=== PATIENT | male | born 1950 | race Caucasian/White ===

== ENCOUNTER 2016-12-12 04:00 | Inpatient (IN) | payer MEDICARE, BC, OTHER ==
[2016-12-12] VITALS (7 sets, daily range): BP systolic 103–107; BP diastolic 55–71; PULSE 114–139; RESP 18–27; O2SAT 96–100
[~2016-12-12] VITALS: Ht 172.7 cm; Wt 80.0 kg
[2016-12-12] MEDS ORDERED: CALCIUM GLUCONATE 10% 1 GM/10 ML VIAL ONE (04:35)
[2016-12-12] MEDS ORDERED: SODIUM CHLORIDE 0.9% FLUSH 10 ML FLUSH IVF PRN ×2 (04:45→05:45)
[2016-12-12 04:48] LABS: I-STAT POTASSIUM 3.1 MMOL/L (3.5-4.9)
--- NOTE | 2016-12-12 04:57 | PD ---
HPI Chief Complaint: Cardiac Complaint Time Seen by Provider: 04:36 Travel History International Travel<30 days: No Contact w/Intl Traveler<30days: No Traveled to known affect area: No History of Present Illness HPI Patient is a 66-year-old male with history of coronary artery disease ventricular tachycardia with AICD in place. Patient called 911 today because he was having palpitations and his pacemaker went off several times. According to EMS the patient was in ventricular tachycardia when they arrived, he was shocked once in their presence by his AICD. He was loaded with lidocaine in transport, on arrival the patient states he is feeling palpitations but otherwise feels well, no chest pain or shortness of breath. PFSH Past Medical History Hx Anticoagulant Therapy: Yes Cardiovascular Problems: Yes (CABG, AICD) Social History Alcohol Use: Yes Tobacco Use: Yes Allergies-Medications (Allergen,Severity, Reaction): Coded Allergies: No Known Allergies (Unverified , 12/12/16) Reported Meds & Prescriptions Reported Meds & Active Scripts Active Reported Isosorbide Dinitrate 20 Mg Tab 20 Mg PO TID Hydralazine HCl 25 Mg Tablet 25 Mg PO BID Metoprolol Succinate ER 24 HR (Metoprolol Succinate) 200 Mg Tab 200 Mg PO DAILY Rosuvastatin (Rosuvastatin Calcium) 20 Mg Tab 20 Mg PO DAILY Rapaflo (Silodosin) 8 Mg Cap 8 Mg PO DAILY Amiodarone (Amiodarone HCl) 200 Mg Tab 200 Mg PO DAILY Xarelto (Rivaroxaban) 20 Mg Tab 20 Mg PO DAILY Spironolactone 25 Mg Tab 12.5 Mg PO DAILY Levothyroxine (Levothyroxine Sodium) 125 Mcg Tab 125 Mcg PO DAILY Lasix (Furosemide) 20 Mg Tab 20 Mg PO DAILY Review of Systems Except as stated in HPI: all other systems reviewed are Neg Physical Exam Narrative GENERAL: Well-developed well-nourished, no obvious distress. SKIN: Focused skin assessment warm/dry. HEAD: Atraumatic. Normocephalic. EYES: Pupils equal and round. No scleral icterus. No injection or drainage. ENT: No nasal bleeding or discharge. Mucous membranes pink and moist. NECK: Trachea midline. No JVD. CARDIOVASCULAR: Regular rate and rhythm. No murmur appreciated. 2+ but equal pulses in all 4 extremities. RESPIRATORY: No accessory muscle use. Clear to auscultation. Breath sounds equal bilaterally. GASTROINTESTINAL: Abdomen soft, non-tender, nondistended. Hepatic and splenic margins not palpable. MUSCULOSKELETAL: No obvious deformities. No clubbing. No cyanosis. No edema. NEUROLOGICAL: Awake and alert. No obvious cranial nerve deficits. Motor grossly within normal limits. Normal speech. PSYCHIATRIC: Appropriate mood and affect; insight and judgment normal. Data Data Last Documented VS Vital Signs Date Time Temp Pulse Resp B/P (MAP) Pulse Ox O2 Delivery O2 Flow Rate FiO2 12/12/16 05:03 92 Nasal Cannula 2.00 12/12/16 04:15 106 12/12/16 04:15 18 107/70 (82) Orders Orders Calcium Gluconate Inj (Calcium Gluconate (12/12/16 04:35) I-Stat Profile (12/12/16 04:36) I-Stat Creatinine (12/12/16 04:36) Electrocardiogram (12/12/16 04:42) Ckmb (Isoenzyme) Profile (12/12/16 04:42) Complete Blood Count With Diff (12/12/16 04:42) Comprehensive Metabolic Panel (12/12/16 04:42) Digoxin (12/12/16 04:42) Magnesium (Mg) (12/12/16 04:42) Prothrombin Time / Inr (Pt) (12/12/16 04:42) Act Partial Throm Time (Ptt) (12/12/16 04:42) Troponin I (12/12/16 04:42) Chest, Single Ap (12/12/16 04:42) Ecg Monitoring (12/12/16 04:42) Iv Access Insert/Monitor (12/12/16 04:42) Oximetry (12/12/16 04:42) Oxygen Administration (12/12/16 04:42) Sodium Chloride 0.9% Flush (Ns Flush) (12/12/16 04:45) Etomidate Inj (Amidate Inj) (12/12/16 05:19) Blood Pressure (12/12/16 05:36) Vital Signs (12/12/16 05:36) Dextrose 5% In Wate... W/Amiodarone Inj (12/12/16 05:51) Sodium Chloride 0.9% Flush (Ns Flush) (12/12/16 05:45) Lidocaine/D5w 2000 Mg/500 Ml (Lidocaine/ (12/12/16 05:36) Furosemide Inj (Lasix Inj) (12/12/16 05:45) Potassium Chlor 20 Meq Premix (Kcl 20 Me (12/12/16 05:45) Admit Order (Ed Use Only) (12/12/16 ) Consult Cardiology (12/12/16 ) Labs Laboratory Tests Test 12/12/16 04:30 12/12/16 04:40 Bedside Hemoglobin 12.6 G/DL Bedside Hematocrit 37.0 % Bedside Sodium 136 MMOL/L Blood Urea Nitrogen 19 MG/DL Creatinine 1.64 MG/DL Random Glucose 126 MG/DL Total Protein 6.3 GM/DL Albumin 3.0 GM/DL Calcium Level 7.8 MG/DL Magnesium Level 1.7 MG/DL Alkaline Phosphatase 60 U/L Aspartate Amino Transf (AST/SGOT) 64 U/L Alanine Aminotransferase (ALT/SGPT) 64 U/L Total Bilirubin 0.4 MG/DL Sodium Level 135 MEQ/L Potassium Level 3.0 MEQ/L Chloride Level 101 MEQ/L Carbon Dioxide Level 23.8 MEQ/L Bedside Potassium 3.1 MMOL/L Bedside Chloride 97 MMOL/L Anion Gap 10 MEQ/L Bedside Blood Urea Nitrogen 19 MG/DL Bedside Creatinine 1.7 MG/DL Estimat Glomerular Filtration Rate 42 ML/MIN Bedside Glucose 129 MG/DL Total Creatine Kinase 91 U/L Troponin I 0.05 NG/ML Digoxin Level LESS THAN 0.1 NG/ML White Blood Count 6.6 TH/MM3 Red Blood Count 3.80 MIL/MM3 Hemoglobin 12.9 GM/DL Hematocrit 37.5 % Mean Corpuscular Volume 98.8 FL Mean Corpuscular Hemoglobin 33.9 PG Mean Corpuscular Hemoglobin Concent 34.4 % Red Cell Distribution Width 14.6 % Platelet Count 137 TH/MM3 Mean Platelet Volume 9.8 FL Neutrophils (%) (Auto) 57.1 % Lymphocytes (%) (Auto) 28.7 % Monocytes (%) (Auto) 10.9 % Eosinophils (%) (Auto) 2.5 % Basophils (%) (Auto) 0.8 % Neutrophils # (Auto) 3.8 TH/MM3 Lymphocytes # (Auto) 1.9 TH/MM3 Monocytes # (Auto) 0.7 TH/MM3 Eosinophils # (Auto) 0.2 TH/MM3 Basophils # (Auto) 0.1 TH/MM3 CBC Comment DIFF FINAL Differential Comment Prothrombin Time 11.4 SEC Prothromb Time International Ratio 1.0 RATIO Activated Partial Thromboplast Time 29.0 SEC MDM Medical Decision Making Medical Screen Exam Complete: Yes Emergency Medical Condition: Yes Differential Diagnosis AICD fire, ventricular tachycardia, ACS, AMI. Narrative Course Patient was roomed in emergency department, he received lidocaine bolus prior to arrival. On arrival the patient is in atrial paced rhythm. Vital signs stable. Shortly after arrival patient started having sustained ventricular tachycardia at a rate of 140-160. His AICD did not fire. The patient was loaded on amiodarone 300 mg IV over 5 minutes. This had no effect. He was also given magnesium 2 g IV, calcium gluconate 2 g IV. Patient's i-STAT chemistry did not reveal any hyperkalemia, no other metabolic deficiencies noted. After the above interventions patient's heart rate slowed to 130s to 140s still with a wide rhythm. The patient was discussed with Dr. Gibbs civil laboratory technician integration technician who recommended emergent interrogation. [facility] AICD was interrogated and did show ventricular tachycardia. The threshold rate for a defibrillation was 150. Attacks asked for my permission to cardiovert this patient and I gave it and he received 2 doses of 40 J from his pacemaker on command. The first dose converted him for a total of 3 beats to sinus rhythm the second dose had no effect. ICU was in consult of Dr. Welch and Dr. Mcdaniel have both lended their expertise. The patient was given procainamide, additional magnesium 2 g, additional amiodarone 150 mg, despite this the patient started becoming somewhat short of breath, he did have some rales but her repeat chest x-ray showed no obvious infiltrate or effusion. He was placed on BiPAP because his saturation had felt to 90% on [address] Mcdaniel is starting a central line and during that procedure the patient's blood pressure started to decrease to 90 systolic, he was started on Wander-Synephrine as well. Lidocaine and amiodarone drips were given as well as well as metoprolol 5 mg IV. Despite all the interventions the patient continues to be in sustained ventricular tachycardia of 1:30 to 140. I discussed again with Dr. Gibbs the possibility of getting an electrophysiology study, unfortunately we have no staff climate scientist integration technician today. I had discussed the patient with [facility] coordinator who referred me to their civil laboratory technician Dr. Nicole who did not return two pages. I discussed the patient with Dr. Humphries who is on-call for the ER at [facility] who did not accept without talking with cardiology first. Dr. Nicole called me back and accepted the patient ER to ER. Patient was then discussed with the transfer center with Dr. Sewell ER physician who accepted ER to ER. The patient is protecting his airway, Dr. Mcdaniel and I had recommended that he be intubated for the flight and he refused. Total interventions prior to transfer: Central line right fem. BIPAP 5/10/60% Lidocaine bolus from EMS Amioodarone 300 Amiodarone 150 Magnesium 2gm x2 doses Calcium Gluconate 2gm Metoprolol 5mg Potassium Cl 20meq Neosynephrine Drip Amiodarone Drip Lidocaine Drip Critical Care Narrative Aggregate critical care time was 91 minutes. Time to perform other separately billable procedures was not included in the critical care time. My time did not include minutes spent treating any other patients simultaneously or on activities that did not directly contribute to the patient's treatment. The services I provided to this patient were to treat and/or prevent clinically significant deterioration that could result in: , disability, organ failure. I provided critical care services requiring my management, as noted below: Chart data review, documentation time, medication orders and management, vital sign assessments/reviewing monitor data, ordering and reviewing lab tests, ordering and interpreting/reviewing x-rays and diagnostic studies, care of the patient and discussion of the patient with the admitting physicians. Diagnosis Primary Impression: Ventricular tachycardia Disposition: 70 TRANSFER TO OTHER FACILITY ( Drs. Nicole/Donato accept at [facility]) Condition: Stable (patient is stabilized the best of my ability for transportation. The benefits of getting to an staff climate scientist outweigh the risks of transportation.) Howard Guerra MD Dec 12, 2016 04:57
[2016-12-12 05:04] LABS: AUTOMATED NEUTROPHIL # 3.8 TH/MM3 (1.8-7.7); BASOPHIL # 0.1 TH/MM3 (0-0.2); BASOPHIL % 0.8 % (0.0-2.0); EOSINOPHIL # 0.2 TH/MM3 (0-0.4); EOSINOPHIL % 2.5 % (0.0-4.0); HEMATOCRIT 37.5 % (39.0-51.0); HEMO FLAGS DIFF FINAL; LYMPH % 28.7 % (9.0-44.0); LYMPHOCYTE # 1.9 TH/MM3 (1.0-4.8); MEAN CELL VOLUME 98.8 FL (80.0-100.0); MEAN CORPUSCULAR HEMOGLOBIN 33.9 PG (27.0-34.0); MEAN CORPUSCULAR HGB CONC 34.4 % (32.0-36.0); MONO % 10.9 % (0.0-8.0); NEUT % 57.1 % (16.0-70.0); PLATELET COUNT 137 TH/MM3 (150-450); RED CELL DISTRIBUTION WIDTH 14.6 % (11.6-17.2); WHITE BLOOD COUNT 6.6 TH/MM3 (4.0-11.0)
[2016-12-12 05:15] LABS: PROTHROMBIN TIME - PATIENT 11.4 SEC (9.8-11.6)
[2016-12-12 05:17] LABS: ALT (GPT) 64 U/L (12-78); ANION GAP 10 MEQ/L (5-15); AST (GOT) 64 U/L (15-37); BICARBONATE 23.8 MEQ/L (21.0-32.0); BLOOD UREA NITROGEN 19 MG/DL (7-18); CHLORIDE 101 MEQ/L (98-107); GLOMERULAR FILTRATION RATE 42 ML/MIN (>89); MAGNESIUM 1.7 MG/DL (1.5-2.5); SODIUM (NA) 135 MEQ/L (136-145)
[2016-12-12] MEDS ORDERED: ETOMIDATE 20 MG/10 ML VIAL ONE (05:19)
[2016-12-12 05:31] LABS: ALKALINE PHOSPHATASE 60 U/L (45-117); DIGOXIN LESS THAN 0.1 NG/ML (0.8-2.0); TOTAL BILIRUBIN ADULT 0.4 MG/DL (0.2-1.0)
[2016-12-12 05:33] LABS: CREATINE KINASE 91 U/L (39-308)
[2016-12-12] MEDS ORDERED: LIDOCAINE/D5W 2000 MG/500 ML 500 ML IV SCH (05:36)
[2016-12-12] MEDS ORDERED: FUROSEMIDE 40 MG/4 ML VIAL IV PUSH ONE (05:45)
[2016-12-12] MEDS ORDERED: POTASSIUM CHLOR 20 MEQ PREMIX 100 ML IV ONE (05:45)
[2016-12-12] MEDS ORDERED: AMIODARONE INJ 450 MG in DEXTROSE 5% IN WATE(EXCEL) INJ 241 ML IV SCH ×2 (05:51)
--- NOTE | 2016-12-12 05:53 | RADRPT ---
EXAM DATE/TIME: 12/12/2016 04:49 [facility] COMPARISON: No previous studies available for comparison. INDICATIONS : Defibrillator. Placement MEDICAL HISTORY : Carcinoma, lung. SURGICAL HISTORY : CABG. Pacemaker. ENCOUNTER: Initial ACUITY: 1 day PAIN SCORE: 0/10 LOCATION: Bilateral chest FINDINGS: A single AP supine portable view of the chest was obtained and demonstrated the patient is status pos t median sternotomy. An artificial heart valve is noted in place. The heart size is mildly prominent with no focal confluent infiltrates or effusions. There is a left subclavian AV sequential transvenou s pacer in place with defibrillator leads. CONCLUSION: 1. Left subclavian transvenous pacer with defibrillator lead. 2. Mild cardiomegaly with no evidence of pulmonary edema. Eduardo Coleman MD on December 12, 2016 at 5:51 Board Certified Radiologist. This report was verified electronically.
[2016-12-12] MEDS ORDERED: DEXTROSE 5% IV SCH ×2 (05:59)
[2016-12-12] MEDS ORDERED: PROCAINAMIDE IV SCH ×2 (05:59)
[2016-12-12] MEDS ORDERED: WATE IV SCH ×2 (05:59)
[2016-12-12] MEDS ORDERED: PROCAINAMIDE 1000 MG/2 ML IV PUSH ONE (06:00)
[2016-12-12] MEDS ORDERED: METOPROLOL TARTRATE 5 MG/5 ML VIAL IV PUSH ONE ×2 (06:30)
[2016-12-12] MEDS ORDERED: MAGNESIUM SULFATE 1 GM PREMIX 100 ML IV ONE (06:30)
--- NOTE | 2016-12-12 06:56 | RADRPT ---
EXAM DATE/TIME: 12/12/2016 07:12 [facility] COMPARISON: CHEST SINGLE AP, December 12, 2016, 4:49. INDICATIONS : Pt pacemaker firing- shocked him 6-7 times last night MEDICAL HISTORY : Hypertension. SURGICAL HISTORY : Pacemaker. ENCOUNTER: Initial ACUITY: 1 day PAIN SCORE: 7/10 LOCATION: Bilateral chest FINDINGS: 2 AP semierect views of the chest were obtained and demonstrate mild hazy infiltrate in the right per ihilar region. The left lung is clear. The heart size is at the upper limits of normal. The patient i s again noted to be status post median sternotomy. The left subclavian transvenous pacer remains in p lace. There is a defibrillator lead. The bony thorax is intact. CONCLUSION: 1. Mild hazy opacity is now noted in the right perihilar region. 2. Status post median sternotomy. The heart size is at the upper limits of normal. Eduardo Coleman MD on December 12, 2016 at 6:54 Board Certified Radiologist. This report was verified electronically.
[2016-12-12] MEDS ORDERED: PHENYLEPHRINE 40 MG in D5W 500 ML IV PRN (07:15)
[2016-12-12] MEDS ORDERED: TERBUTALINE INJ 1 MG/ML AMP SQ PRN (07:15)
[2016-12-12 07:18] LABS: CREATINE KINASE 249 U/L (39-308)
[2016-12-12] MEDS ORDERED: METO200T3 PO (07:18)
[2016-12-12] MEDS ORDERED: AMIO200T PO (07:18)
[2016-12-12] MEDS ORDERED: ISOS20TA2 PO (07:18)
[2016-12-12] MEDS ORDERED: XARE20TA PO (07:18)
[2016-12-12] MEDS ORDERED: FURO1TAB62 PO (07:18)
[2016-12-12] MEDS ORDERED: RAPA8CAP PO (07:18)
[2016-12-12] MEDS ORDERED: SPIR25TA PO (07:18)
[2016-12-12] MEDS ORDERED: HYDR-3799 PO (07:18)
[2016-12-12] MEDS ORDERED: ROSU1TAB8 PO (07:18)
[2016-12-12] MEDS ORDERED: LEVO125T4 PO (07:18)
[2016-12-12] MEDS ORDERED: AMIODARONE HCL 150 MG/3 ML VIAL ONE (07:30)
[2016-12-12 07:34] LABS: CKMB 4.6 NG/ML (0.5-3.6)
--- NOTE | 2016-12-12 08:01 | HHI.HP ---
HPI Service Critical Care Medicine Primary Care Physician Unknown Admission Diagnosis Sustained VT Diagnosis: (1) Sustained ventricular tachycardia Diagnosis: Principal (2) Hypotension Diagnosis: Principal (3) Acute hypoxemic respiratory failure Diagnosis: Principal (4) Ischemic cardiomyopathy Diagnosis: Secondary (5) Lung cancer Diagnosis: Secondary (6) CAD (coronary artery disease) Diagnosis: Secondary Chief Complaint: Sustained VTAC Travel History International Travel<30 Days: No Contact w/Intl Traveler <30 Da: No Traveled to Known Affected Are: No History of Present Illness Patient is a 66-year-old male with history of coronary artery disease, CABG, ventricular tachycardia with AICD called EMS due to sustained palpitation and AICD firing several times. Patient was in ventricular tachycardia when EMS arrived, he was shocked once in their presence by his AICD, was loaded with lidocaine, and brought to [place]. Initially on arrival the patient is in atrial paced rhythm. Shortly after arrival went into sustained ventricular tachycardia at a rate of 140-160. Patient was loaded with amiodarone 300 mg IV over 5 minutes with no response and. He was also given magnesium 2 g IV, calcium gluconate 2 g IV. He remained in wide complex rhythm which appeared to be ventricular tachycardia. ED doctor discussed with Dr. Gibbs nematologist. Emergent interrogation of [facility] [facility]reet AICD was done, confirmed ventricular tachycardia, threshold rate for a defibrillation was 150. He received 2 doses of 40 J from his pacemaker on command. Briefly converted out of ventricular tachycardia but in few seconds when back to V. tach. Patient also received procainamide, additional magnesium 2 g, additional amiodarone 150 mg, and was placed on lidocaine infusion. He was placed on BiPAP for hypoxia and increased work of breathing. Critical care medicine was consulted for sustained VTAC and I immediately evaluated the patient in the ED. He is in moderate distress remains in ventricular tachycardia blood pressure systolic 90-100. I discussed extensively with Dr. Gibbs. Additional loading dose of amiodarone 150 mg given, I also gave 5 mg of IV metoprolol. None of this converted the rhythm. I also discussed overdrive pacing with Dr. Gibbs who did not think it'll help as the heart rate was 140-150. I placed an arterial and central line in the ED. And started the patient on Wander-Synephrine 80 mcg/m for hypotension. Dr. Gibbs requested stat transfer to [facility] for EP studies and ablation potentially. (There is no EP on-call available at this facility today). Dr. Guerra is right now contacting [facility]. Review of Systems ROS Limitations: Clinical Condition (Resp failure on BIPAP) Past Family Social History Allergies: Coded Allergies: No Known Allergies (Unverified , 12/12/16) Past Medical History Coronary artery disease and history of CABG Ischemic cardiomyopathy Lung ca on chemotherapy and radiation Past Surgical History CABG AICD placement Reported Medications Isosorbide Dinitrate 20 Mg Tab 20 Mg PO TID Hydralazine HCl 25 Mg Tablet 25 Mg PO BID Metoprolol Succinate ER 24 HR (Metoprolol Succinate) 200 Mg Tab 200 Mg PO DAILY Rosuvastatin (Rosuvastatin Calcium) 20 Mg Tab 20 Mg PO DAILY Rapaflo (Silodosin) 8 Mg Cap 8 Mg PO DAILY Amiodarone (Amiodarone HCl) 200 Mg Tab 200 Mg PO DAILY Xarelto (Rivaroxaban) 20 Mg Tab 20 Mg PO DAILY Spironolactone 25 Mg Tab 12.5 Mg PO DAILY Levothyroxine (Levothyroxine Sodium) 125 Mcg Tab 125 Mcg PO DAILY Lasix (Furosemide) 20 Mg Tab 20 Mg PO DAILY Active Ordered Medications On amiodarone infusion and lidocaine infusion Family History Unable to obtain due to clinical condition Social History Unable to obtain due to clinical condition Physical Exam Vital Signs Vital Signs Date Time Temp Pulse Resp B/P (MAP) Pulse Ox O2 Delivery O2 Flow Rate FiO2 12/12/16 07:50 136 99/62 12/12/16 07:24 135 103/55 12/12/16 07:21 136 27 103/55 (71) 100 BiPAP 12/12/16 06:30 98 60 12/12/16 05:57 145 111/82 12/12/16 05:54 145 113/78 12/12/16 05:03 92 Nasal Cannula 2.00 12/12/16 04:15 106 96 Nasal Cannula 2.00 12/12/16 04:15 114 18 107/70 (82) 96 Physical Exam GENERAL: Well-developed well-nourished, in moderate distress anxious SKIN: Skin is warm/dry. HEAD: Atraumatic. Normocephalic. EYES: Pupils equal and round. ENT: Oral mucosa is dry airway patent NECK: Trachea midline. No JVD. CARDIOVASCULAR: Regular wide complex rhythm, heart sounds distant. 2+ but equal pulses in all 4 extremities. Left upper chest AICD in place RESPIRATORY: Positive accessory muscle use, now on BiPAP. Diminished air entry at the bases GASTROINTESTINAL: Abdomen soft, non-tender, nondistended. MUSCULOSKELETAL: No obvious deformities. No clubbing. No cyanosis. No edema. NEUROLOGICAL: Awake and alert. No obvious cranial nerve deficits. Motor grossly within normal limits. Normal speech. Laboratory Laboratory Tests Test 12/12/16 04:30 12/12/16 04:40 12/12/16 06:39 Bedside Hemoglobin 12.6 Bedside Hematocrit 37.0 Bedside Sodium 136 Blood Urea Nitrogen 19 Creatinine 1.64 Random Glucose 126 Total Protein 6.3 Albumin 3.0 Calcium Level 7.8 Magnesium Level 1.7 Alkaline Phosphatase 60 Aspartate Amino Transf (AST/SGOT) 64 Alanine Aminotransferase (ALT/SGPT) 64 Total Bilirubin 0.4 Sodium Level 135 Potassium Level 3.0 Chloride Level 101 Carbon Dioxide Level 23.8 Bedside Potassium 3.1 Bedside Chloride 97 Anion Gap 10 Bedside Blood Urea Nitrogen 19 Bedside Creatinine 1.7 Estimat Glomerular Filtration Rate 42 Bedside Glucose 129 Total Creatine Kinase 91 249 Troponin I 0.05 0.28 Digoxin Level LESS THAN 0.1 White Blood Count 6.6 Red Blood Count 3.80 Hemoglobin 12.9 Hematocrit 37.5 Mean Corpuscular Volume 98.8 Mean Corpuscular Hemoglobin 33.9 Mean Corpuscular Hemoglobin Concent 34.4 Red Cell Distribution Width 14.6 Platelet Count 137 Mean Platelet Volume 9.8 Neutrophils (%) (Auto) 57.1 Lymphocytes (%) (Auto) 28.7 Monocytes (%) (Auto) 10.9 Eosinophils (%) (Auto) 2.5 Basophils (%) (Auto) 0.8 Neutrophils # (Auto) 3.8 Lymphocytes # (Auto) 1.9 Monocytes # (Auto) 0.7 Eosinophils # (Auto) 0.2 Basophils # (Auto) 0.1 CBC Comment DIFF FINAL Differential Comment Prothrombin Time 11.4 Prothromb Time International Ratio 1.0 Activated Partial Thromboplast Time 29.0 Creatine Kinase MB 4.6 Result Diagram: 12/12/160 12/12/16429 Imaging CXR Mild infrahilar infiltrate Caprini VTE Risk Assessment Caprini VTE Risk Assessment: Mod/High Risk (score >= 2) Caprini Risk Assessment Model Point Value = 1 Point Value = 2 Point Value = 3 Point Value = 5 Age 41-60 Minor surgery BMI > 25 kg/m2 Swollen legs Varicose veins or History of unexplained or recurrent spontaneous Oral contraceptives or hormone replacement Sepsis (< 1 month) Serious lung disease, including pneumonia (< 1 month) Abnormal pulmonary function Acute myocardial infarction Congestive heart failure (< 1 month) History of inflammatory bowel disease Medical patient at bed rest Age 61-74 Arthroscopic surgery Major open surgery (> 45 min) Laparoscopic surgery (> 45 min) Malignancy Confined to bed (> 72 hours) Immobilizing plaster cast Central venous access Age >= 75 History of VTE Family history of VTE Factor V Leiden Prothrombin [id number] Lupus anticoagulant Anticardiolipin antibodies Elevated serum homocysteine Heparin-induced thrombocytopenia Other congenital or acquired thrombophilia Stroke (< 1 month) Elective arthroplasty Hip, pelvis, or leg fracture Acute spinal cord injury (< 1 month) Prophylaxis Regimen Total Risk Factor Score Risk Level Prophylaxis Regimen 0-1 Low Early ambulation 2 Moderate Order ONE of the following: *Sequential Compression Device (SCD) *Heparin 5000 units SQ BID 3-4 Higher Order ONE of the following medications: *Heparin 5000 units SQ TID *Enoxaparin/Lovenox 40 mg SQ daily (WT < 150 kg, CrCl > 30 mL/min) *Enoxaparin/Lovenox 30 mg SQ daily (WT < 150 kg, CrCl > 10-29 mL/min) *Enoxaparin/Lovenox 30 mg SQ BID (WT < 150 kg, CrCl > 30 mL/min) AND/OR *Sequential Compression Device (SCD) 5 or more Highest Order ONE of the following medications: *Heparin 5000 units SQ TID (Preferred with Epidurals) *Enoxaparin/Lovenox 40 mg SQ daily (WT < 150 kg, CrCl > 30 mL/min) *Enoxaparin/Lovenox 30 mg SQ daily (WT < 150 kg, CrCl > 10-29 mL/min) *Enoxaparin/Lovenox 30 mg SQ BID (WT < 150 kg, CrCl > 30 mL/min) AND *Sequential Compression Device (SCD) Assessment and Plan Assessment and Plan NEURO: -No sedation, other than for cardioversion RESP: Acute hypoxemic respiratory failure History of lung cancer - Currently on BiPAP, tolerating well - We'll try to avoid endotracheal intubation, induction may cause cardiac arrest - Patient initially refused to be intubated at all, but later agreed to 1-2 day intubation CV: Sustained ventricular tachycardia Hypotension Ischemic cardiomyopathy ejection fraction 30% according to patient Coronary artery disease - Directed Shock 2 by AICD in the ED - Received multiple boluses of amiodarone and lidocaine, continue amiodarone infusion, lidocaine infusion - Metoprolol 5 mg IV push 1. Received multiple magnesium and calcium and getting potassium replacement - Discussed overdrive pacing, Dr. Gibbs suspect will not work due to tachycardia 150s - Dr. Gibbs is unable to contact EP nematologist - Attempt transfer to [facility] for EP study and ablation - Normal saline IV fluids bolus x2. GI: - NPO : - Monitor renal function closely. Place Watts catheter. ID: - Monitor for infection. No antibiotics HEME: Chronic Xarelto use - Monitor CBC, CMP, coags ENDO: Hypokalemia - Electrolyte replacement per protocol LINES: - Right femoral central line and arterial lines 12/12/ CC time 90 min excluding procedures Dispo -Transfer to [facility] for EP/V TAC ablation Code Status Full Discussed Condition With Dr. Gibbs and Dr. Guerra Problem Qualifiers (1) Lung cancer: (2) CAD (coronary artery disease): Joan Mcdaniel MD Dec 12, 2016 08:01
--- NOTE | 2016-12-12 09:20 | MB ---
cc: YANELI BRANTLEY MD DATE OF CONSULTATION: 12/12/2016 REASON FOR CONSULTATION VT storm. HISTORY OF PRESENT ILLNESS The patient is a pleasant 66-year-old gentleman from [place] visiting for [facility], who began having defibrillator shocks and thus, EMS was called. EMS found him in ventricular tachycardia and externally shocked him again, but he has been in refractory relatively slow ventricular tachycardia in the 130s to 150s. His blood pressure has been quite marginal between the 90s and one teens. He generally feels okay but has been becoming progressively more short of breath requiring BiPAP in the emergency department. The patient says that he missed his medications yesterday. Other than the shocks he was asymptomatic enjoying the local festivities including fairly high alcohol amount but no other drugs. His history is notable for an ischemic cardiomyopathy with ejection fraction about 30%, per the patient and a remote coronary artery bypass graft surgery without any subsequent coronary procedures. The patient has never had VT storm before. PAST MEDICAL HISTORY 1. Ischemic cardiomyopathy 2. Presumed atrial fibrillation on Xarelto 3. Coronary artery disease 4. Hypertension 5. Hypercholesterolemia 6. Chronic systolic congestive heart failure. MEDICATIONS Current medications include: 1. Amiodarone and 2. Lidocaine drips 3. IV metoprolol 4. Wander-Synephrine 5. Procainamide. ALLERGIES NO KNOWN DRUG ALLERGIES. PHYSICAL EXAMINATION VITAL SIGNS: Afebrile, pulse 130, respiratory rate 27, BP 99/62 sating 100% on BiPAP. GENERAL: Pleasant overweight gentleman, in no major distress though somewhat uncomfortable. NECK: JVP does appear mildly elevated, though he is lying flat. LUNGS: Decreased breath sounds with some crackles at the bases. CARDIOVASCULAR: Tachycardic, regular. No murmurs appreciated. ABDOMEN: Abdomen is distended (this is __ the patient says he becomes edematous). EXTREMITIES: No edema. LABORATORY DATA White count 6.6, hematocrit 37.5, platelets 137. Sodium 135, potassium 3.0, chloride 101, bicarb 23.8, BUN 19, creatinine 1.64, troponin is 0.28. The [facility] bi-V ICD interrogation is notable for many VT episodes with ATP and 11 shocks being delivered as well as evidence of fluid retention. EKG Pending. IMPRESSION 1. VT storm. The patient continues to be in ventricular tachycardia, proven by the pacemaker interrogation that is refractory to shocks as well as multiple intravenous medications. The patient is becoming more and more unstable with lowering blood pressures and respiratory difficulty with possible impending respiratory failure. Because of all of his he is being emergently transferred to [facility] via helicopter where the EP team is already aware of him and can potentially perform an emergent VT ablation or other procedure they see fit, as that is not currently available at this hospital at the moment. He is being acutely/critically managed as we speak and further recommendations are made on ongoing basis. Thank you again for the opportunity to participate in this patient's care. MD GENEVA Wynn/LISA /7:51 AM /8:58 AM
--- NOTE | 2016-12-12 09:30 | PD.PROCEDR ---
Central Line Procedure REASON FOR PROCEDURE Central venous access PROCEDURE PERFORMED Central line placement: Right femoral central line placement ultrasound-guided CONSENT Informed consent for procedure was obtained. The risks and benefits of the procedure were discussed to include but limited to bleeding, clot formation, infection, and even . ANESTHESIA Local injection of 1% Lidocaine DESCRIPTION OF THE PROCEDURE The patient was placed in supine, mild Trendelenburg position. The area was exposed and cleansed with ChloraPrep, times two. Large sterile drape was used to cover the patient, with the site exposed, under sterile conditions including cap, face mask, sterile gown, and sterile gloves. On single attempt, the introducer needle was inserted with negative pressure in syringe and venous flash was obtained. The guide wire was then advanced without any restriction and the needle was removed. The dilator was used without any complications. Using Seldinger technique the 20 CM 7F catheter was advanced over the guide wire to a depth of 17 centimeters. The guide wire was removed. All ports were aspirated with dark venous blood return and flushed easily with sterile saline. All ports were capped. Antibiotic disc was placed around central line at puncture site. The central line was secured to the skin with two interrupted 2.0 silk sutures. The area was bandaged with sterile see-through central line bandage. RADIOLOGICAL DATA Ultrasound guidance was used to locate R femoral vein. COMPLICATIONS: No apparent complications ESTIMATED BLOOD LOSS: Less than 1 cc. Joan Mcdaniel MD Dec 12, 2016 09:29
--- NOTE | 2016-12-12 09:34 | PD.PROCEDR ---
Procedure Note Procedure REASON FOR PROCEDURE Right femoral arterial line PROCEDURE PERFORMED Right femoral arterial line placement ultrasound-guided CONSENT Informed consent for procedure was obtained. The risks and benefits of the procedure were discussed to include but limited to bleeding, clot formation, infection, and even . ANESTHESIA Local injection of 1% Lidocaine DESCRIPTION OF THE PROCEDURE The patient was placed in appropriate position. The area was exposed and cleansed with ChloraPrep, times two. Large sterile drape was used to cover the patient, with the site exposed, under sterile conditions including cap, face mask, sterile gown, and sterile gloves. On single attempt, the introducer needle was inserted with negative pressure in syringe and arterial flash was obtained. The guide wire was then advanced without any restriction and the needle was removed. Using Seldinger technique the arterial catheter was advanced over the guide wire. The guide wire was removed. A good arterial waveform was obtained. Antibiotic disc was placed around central line at puncture site. The arterial line was secured to the skin with two interrupted 2.0 silk sutures. The area was bandaged with sterile see-through bandage. RADIOLOGICAL DATA Ultrasound guidance was used to locate R femoral artery line. COMPLICATIONS: No apparent complications ESTIMATED BLOOD LOSS: Less than 1 cc. Joan Mcdaniel MD Dec 12, 2016 09:34
[2016-12-12] MEDS ORDERED: FUROSEMIDE 100 MG/10 ML VIAL IV PUSH ONE (09:48)
[2016-12-12] MEDS ORDERED: SODIUM BICARBONATE 8.4% INJ 50 MEQ/50 ML SYR IV ONE (09:48)
[2016-12-12] MEDS ORDERED: MAGNESIUM SULFATE 40 MEQ/10 ML VIAL IV ONE (09:48)
[2016-12-12] MEDS ORDERED: LIDOCAINE/D5W 2000 MG/500 ML 500 ML IV ONE (09:48)
[2016-12-12] MEDS ORDERED: AMIODARONE HCL 150 MG/3 ML VIAL IV ONE (09:48)
--- NOTE | 2016-12-12 13:16 | EKG ---
Date Performed: 12/12/2016 Time Performed: 04:07:13 PTAGE: 66 years EKG: ELECTRONIC VENTRICULAR PACEMAKER ABNORMAL RHYTHM ECG NO PREVIOUS TRACING DOCTOR: Dany Chaudhry Interpretating Date/Time 12/12/2016 13:14:43
--- NOTE | 2016-12-12 13:16 | EKG ---
Date Performed: 12/12/2016 Time Performed: 04:32:44 PTAGE: 66 years EKG: Ventricular Tacycardia INTRAVENTRICULAR CONDUCTION DELAY LATERAL MYOCARDIAL INFARCTION INFE RIOR MYOCARDIAL INFARCTION ACUTE OH INTERPRETATION BASED ON A DEFAULT AGE OF 40 YEARS PREVIOUS TRACING : 12/12/2016 04.07 Prior tracing showed paced rhythm DOCTOR: Dany Chaudhry Interpretating Date/Time 12/12/2016 13:14:34
--- NOTE | 2016-12-13 13:18 | EKG ---
Date Performed: 12/12/2016 Time Performed: 07:55:07 PTAGE: 66 years EKG: Ventricular tachycardia Can not exclude acute myocardial infarction. Since previous tracing , no significant change noted Abnormal ECG PREVIOUS TRACING : 12/12/2016 04.32 DOCTOR: Adi Pedraza Interpretating Date/Time 12/13/2016 13:17:06
== END 2016-12-12 09:49 | disposition short-term general hospital (02) | DRG 308 ==
LOC: NEPE 04:00 → NEDA 05:40
PROVIDERS: ADMIT Internal Medicine Critical Care Medicine; ATTEND Internal Medicine Critical Care Medicine
PROC: 5A09357 Assistance with Respiratory Ventilation, Less than 24 Consecutive Hours, Continuous Positive Airway Pressure (ICD-10-PCS; principal; 2016-12-12)
PROC: 06HM33Z Insertion of Infusion Device into Right Femoral Vein, Percutaneous Approach (ICD-10-PCS; 2016-12-12)
DX: I47.2 Ventricular tachycardia (principal); J96.01 Acute respiratory failure with hypoxia; I50.22 Chronic systolic (congestive) heart failure; C34.90 Malignant neoplasm of unspecified part of unspecified bronchus or lung; I11.0 Hypertensive heart disease with heart failure; I25.5 Ischemic cardiomyopathy; E78.00 Pure hypercholesterolemia, unspecified; I25.10 Atherosclerotic heart disease of native coronary artery without angina pectoris; E87.6 Hypokalemia; F17.210 Nicotine dependence, cigarettes, uncomplicated; Z95.810 Presence of automatic (implantable) cardiac defibrillator; Z95.1 Presence of aortocoronary bypass graft; Z79.01 Long term (current) use of anticoagulants
CPT/HCPCS: 71010; 80053; 80162; 82435; 82550; 82552; 82565; 82947; 83735; 84132; 84295; 84484; 84520; 85025; 85610; 85730; 93005; 94002; J0282; J0610; J1940; J2001; J2370; J3475; J3480; J7060